=== PATIENT | male | born 1965 | race Native Hawaiian/Other Pacific Islander ===

== ENCOUNTER 2021-05-23 11:02 | Outpatient (CLI) | payer BC | END 2021-05-23 18:52 | disposition home or self-care (01) | LOC: RESP 11:02 | PROVIDERS: ATTEND Nurse Practitioner Family | DX: R00.0 Tachycardia, unspecified (principal); I34.1 Nonrheumatic mitral (valve) prolapse | CPT/HCPCS: 93225 ==